=== PATIENT | female | born 1990 | race Caucasian/White ===

== ENCOUNTER 2016-03-31 16:20 | Emergency (ER) | payer MEDICAID ==
[2016-03-31] MEDS ORDERED: KETOROLAC 30 MG/ML VIAL ONE (21:09)
[2016-03-31] MEDS ORDERED: DIPHENHYDRAMINE 50 MG/ML VIAL ONE (21:09)
[2016-03-31] MEDS ORDERED: SODIUM CHLORIDE 0.9% 1,000 ML ONE (21:09)
[2016-03-31] MEDS ORDERED: METOCLOPRAMIDE 10 MG/2 ML VIAL ONE (21:09)
== END 2016-03-31 22:40 | disposition home or self-care (01) ==
LOC: ER 16:20
DX: G43.701 Chronic migraine without aura, not intractable, with status migrainosus (principal)
CPT/HCPCS: 82947; 96361; 96374; 96375

== ENCOUNTER 2016-04-06 19:19 | Emergency (ER) | payer MEDICAID ==
[2016-04-06] MEDS ORDERED: OPTIRAY 350 50 ML HMH IV ONE (19:20)
[2016-04-06] MEDS ORDERED: DIPHENHYDRAMINE 50 MG/ML VIAL ONE (20:21)
[2016-04-06] MEDS ORDERED: SODIUM CHLORIDE 0.9% 1,000 ML ONE (20:21)
[2016-04-06] MEDS ORDERED: ONDANSETRON 4 MG VIAL ONE (20:21)
[2016-04-06] MEDS ORDERED: KETOROLAC 30 MG/ML VIAL ONE (21:21)
[2016-04-06] MEDS ORDERED: METOCLOPRAMIDE 10 MG/2 ML VIAL ONE (21:21)
[2016-04-06] MEDS ORDERED: PROPARACAINE 0.5% OP SOLN ONE (21:28)
[2016-04-07] MEDS ORDERED: SODIUM CHLORIDE 0.9% 1,000 ML ONE (03:07)
== END 2016-04-07 03:35 | disposition other institution (70) ==
LOC: ER 19:19
DX: R51 Headache (principal); H57.13 Ocular pain, bilateral; H53.131 Sudden visual loss, right eye
CPT/HCPCS: 36415; 70450; 70481; 80053; 84703; 85025; 96361; 96374; 96375